=== PATIENT | male | born 1990 | race Caucasian/White ===

== ENCOUNTER 2019-05-29 15:49 | Emergency (ER) | payer SELFPAY ==
[2019-05-29 16:00] VITALS: BP 123/85
[2019-05-29] MEDS ORDERED: HYDROCODONE/ACETAMINOPHEN 5-325 MG TABLET PO ONE (16:31)
--- NOTE | 2019-05-29 16:34 | ER Document Report ---
ED Medical Screen (RME) - General Chief Complaint: Insect Bite Stated Complaint: ABSCESS/RIGHT WRIST Time Seen by Provider: 05/29/19 16:30 Mode of Arrival: Ambulatory Information source: Patient Notes: 29-year-old male presented to ED with a abscess to the right wrist. He states he was out in the [facility] on Thursday and something bit him he does not know what bit him but he has had pain and swelling to that wrist since then. He just got very painful today. He states he used to use drugs but does not use any drugs now and this is not from a dirty needle. He does have red streaking up the arm to the elbow from the wrist. Patient is alert oriented respirations regular nonlabored speaking in full sentences. I have greeted and performed a rapid initial assessment of this patient. A comprehensive ED assessment and evaluation of the patient, analysis of test results and completion of medical decision making process will be conducted by an additional ED providers. TRAVEL OUTSIDE OF THE [place] IN LAST 30 DAYS: No - Related Data Allergies/Adverse Reactions: No Known Allergies Allergy (Unverified 05/29/19 16:21) Physical Exam - Vital signs Vitals: Temp Pulse Resp BP Pulse Ox 97.7 F 102 H 22 H 123/85 100 05/29/19 15:59 05/29/19 15:59 05/29/19 15:59 05/29/19 15:59 05/29/19 15:59 Course - Vital Signs Vital signs: Temp Pulse Resp BP Pulse Ox 97.7 F 102 H 22 H 123/85 100 05/29/19 15:59 05/29/19 15:59 05/29/19 15:59 05/29/19 15:59 05/29/19 15:59
[2019-05-29] MEDS ORDERED: NORMAL SALINE 1000 ML 1,000 ML IV ONE (17:11)
[2019-05-29] MEDS ORDERED: CLINDAMYCIN 900 MG/D5W RTU 900 MG/50 ML RTUPB IV ONE (17:11)
[2019-05-29] MEDS ORDERED: LIDOCAINE 1.5%/EPINEPHRINE INJ-PF 30 ML SDV INJ ONE (17:12)
[2019-05-29] MEDS ORDERED: LIDOCAINE 1% INJ-PF (10 MG/ML) 30 ML SDV INJ ONE (17:12)
[2019-05-29] MEDS ORDERED: MORPHINE SULFATE 10 MG/ML INJ IV ONE (17:12)
[2019-05-29] MEDS ORDERED: ONDANSETRON HCL INJ/PF 4 MG/2 ML SDV IV ONE (17:12)
[2019-05-29 17:13] LABS: ABSOLUTE BASOPHILS # (AUTO) 0.2 10^3/uL (0.0-0.2); ABSOLUTE LYMPHOCYTES (AUTO) 2.3 10^3/uL (0.5-4.7); ABSOLUTE MONOCYTES (AUTO) 1.4 10^3/uL (0.1-1.4); BASOPHILS % (AUTO) 1.3 % (0-2); EOSINOPHILS % (AUTO) 0.3 % (0-6); HEMATOCRIT 44.9 % (37.9-51.0); HEMOGLOBIN 15.6 g/dL (13.5-17.0); LYMPHOCYTES % (AUTO) 12.1 % (13-45); MEAN CORPUSCULAR HEMOGLOBIN 31.4 pg (27.0-33.4); MEAN CORPUSCULAR HGB CONC 34.7 g/dL (32.0-36.0); MEAN CORPUSCULAR VOLUME 91 fl (80-97); MONOCYTES % (AUTO) 7.2 % (3-13); PLATELET COUNT 508 10^3/uL (150-450); RED BLOOD COUNT 4.96 10^6/uL (4.35-5.55); RED CELL DISTRIBUTION WIDTH 16.8 % (11.5-14.0); SEGMENTED NEUTROPHILS % (AUTO) 79.1 % (42-78); TOTAL CELLS COUNTED % (AUTO) 100 %
[2019-05-29 17:16] LABS: APPEARANCE,URINE CLEAR; BILIRUBIN,URINE NEGATIVE (NEGATIVE); COLOR,URINE YELLOW; GLUCOSE, URINE NEGATIVE (NEGATIVE); KETONES,URINE NEGATIVE (NEGATIVE); PROTEIN,URINE NEGATIVE (NEGATIVE); URINE SPECIFIC GRAVITY 1.014
--- NOTE | 2019-05-29 17:19 | ER Document Report ---
ED General - General Chief Complaint: Insect Bite Stated Complaint: ABSCESS/RIGHT WRIST Time Seen by Provider: 05/29/19 16:30 Mode of Arrival: Ambulatory Notes: Patient is a 29-year-old white male with no reported past medical history who presents to the emergency department the chief complaint of swollen red painful lesion to the right wrist that began on Thursday, 5 days ago. He states he was in the [facility] getting set up for when he was either "poked or bitten by something". He states at the time he did not think anything of it, it was not bad. He states it itched a little over the next couple days. He states by about day 3 began to be sore. He states yesterday he noticed it was red and swollen and very painful. He states he tried to wait it out last night and stated it was not better by noon today that he was going to call an ambulance. He states it indeed did not get better and so he came to the emergency department. He managed to a red swollen painful lump to the volar right wrist with some proximal red streaking. He denies any known fevers, nausea, vomiting, diarrhea, chills, night sweats, chest pain, shortness of breath or abdominal pain. TRAVEL OUTSIDE OF THE [place] IN LAST 30 DAYS: No - Related Data Allergies/Adverse Reactions: No Known Allergies Allergy (Unverified 05/29/19 16:21) Past Medical History - General Information source: Patient - Social History Smoking Status: Current Every Day Smoker Family History: Reviewed & Not Pertinent Patient has suicidal ideation: No Patient has homicidal ideation: No Review of Systems - Review of Systems Skin: Change in color, Lesions, Lumps, Rash -: Yes All other systems reviewed and negative Physical Exam - Vital signs Vitals: Temp Pulse Resp BP Pulse Ox 97.7 F 102 H 22 H 123/85 100 05/29/19 15:59 05/29/19 15:59 05/29/19 15:59 05/29/19 15:59 05/29/19 15:59 - General General appearance: Appears well, Alert In distress: None Notes: Nontoxic - HEENT Head: Normocephalic, Atraumatic Eyes: Normal Conjunctiva: Normal Extraocular movements intact: Yes Pupils: PERRL Mucous membranes: Moist Neck: Supple - Respiratory Respiratory status: No respiratory distress Chest status: Nontender Breath sounds: Normal Chest palpation: Normal - Cardiovascular Rhythm: Regular Heart sounds: Normal auscultation - Neurological Neuro grossly intact: Yes Cognition: Normal Orientation: AAOx4 [place] Coma Scale Eye Opening: Spontaneous [place] Coma Scale Verbal: Oriented Abby Coma Scale Motor: Obeys Commands Abby Coma Scale Total: 15 Speech: Normal - Psychological Associated symptoms: Anxious - Skin Skin Color: Other - Small dime sized abscess formation to the volar right wrist/distal forearm has approximately 0.5 cm elevation. No pointing. There is a questionable amount of fluctuance appreciated. There is some mild expanding cellulitis with proximal streaking to about the elbow. He has no epitrochlear lymphadenopathy but does exhibit some axillary lymphadenopathy, nontender. Site is exquisitely tender to palpation. No drainage. Full passive range of motion of the affected arm and hand. Course - Re-evaluation Re-evalutation: 05/29/19 18:31 Patient tolerated I&D well. Received IV clindamycin here as well as some pain medications and fluids. He does have an elevated white count of 19. He will be sent home to continue clindamycin for now. His vitals are within normal limits. He is afebrile and stable and appropriate for discharge and outpatient follow-u p. Nontoxic in appearance. Counseled him regarding the importance of follow-up in 2 to 3 days for wound recheck, reevaluation and packing removal. Advised to return here or any ER immediately with any new, persistent or worsening symptoms. He verbalized understood and agreed. - Vital Signs Vital signs: Temp Pulse Resp BP Pulse Ox 97.7 F 102 H 22 H 123/85 100 05/29/19 15:59 05/29/19 15:59 05/29/19 15:59 05/29/19 15:59 05/29/19 15:59 - Laboratory Result Diagrams: 05/29/19 16:40 05/29/19 16:40 Laboratory results interpreted by me: 05/29/19 05/29/19 05/29/19 16:40 16:40 16:40 WBC 19.0 H RDW 16.8 H Plt Count 508 H Lymph % (Auto) 12.1 L Absolute Neuts (auto) 15.0 H Seg Neutrophils % 79.1 H Total Protein 8.3 H Urine Urobilinogen 2.0 H Procedures - Incision and Drainage Right Wrist Time completed: 18:32 Type: Complex Anesthetic type: 1% Lidocaine mL's of anesthetic: 2 Blade size: 11 I&D procedure: Betadine prep applied, Iodoform packing placed Incision Method: Incision made by scalpel Amount/type of drainage: Moderate purulence Notes: 05/29/19 18:32 Tolerated well Discharge - Discharge Clinical Impression: Abscess, Lymphangitis Condition: Stable Disposition: HOME, SELF-CARE Instructions: Post Incision and Drainage Additional Instructions: Please follow-up here or with your regular doctor in 2 to 3 days for wound recheck, reevaluation and packing removal. Please return here or any ER immediately with any new, persistent or worsening symptoms. Prescriptions: Clindamycin HCl 300 mg PO Q6 #40 capsule Hydrocodone/Acetaminophen [[place] 5-325 mg Tablet] 1 tab PO Q6 PRN #10 tablet PRN Reason:
[2019-05-29 17:23] LABS: URINE AMPHETAMINES SCREEN NEGATIVE; URINE BARBITURATES SCREEN NEGATIVE; URINE BENZODIAZEPINES SCREEN NEGATIVE; URINE COCAINE SCREEN NEGATIVE; URINE METHADONE SCREEN NEGATIVE; URINE PHENCYCLIDINE SCREEN NEGATIVE
[2019-05-29 17:27] LABS: ALBUMIN 4.8 g/dL (3.5-5.0); ALKALINE PHOSPHATASE 81 U/L (38-126); ANION GAP 9 (5-19); ASPARTATE AMINO TRANSFERASE 22 U/L (17-59); BILIRUBIN,TOTAL 0.6 mg/dL (0.2-1.3); BLOOD UREA NITROGEN 14 mg/dL (7-20); CALCIUM 9.9 mg/dL (8.4-10.2); CARBON DIOXIDE 28 mmol/L (22-30); CHLORIDE 103 mmol/L (98-107); GLUCOSE 101 mg/dL (75-110); POTASSIUM 3.8 mmol/L (3.6-5.0); TOTAL PROTEIN 8.3 g/dL (6.3-8.2)
--- NOTE | 2019-05-29 17:27 | RADIOLOGY REPORT (SQ) ---
EXAM DESCRIPTION: WRIST RIGHT 3 VIEWS IMAGES COMPLETED DATE/TIME: 05/29/2019 4:00 pm REASON FOR STUDY: infection/abscess. In that by a at the radial at rest. COMPARISON: None. NUMBER OF VIEWS: Three views. TECHNIQUE: AP, lateral, and oblique radiographic images acquired of the right wrist. LIMITATIONS: None. FINDINGS: MINERALIZATION: Normal. BONES: No acute fracture or dislocation. No worrisome bone lesions. Normal alignment. SOFT TISSUES: There is soft tissue swelling at the radial aspect of the wrist. No radiopaque foreign body. OTHER: No other significant finding. IMPRESSION: No acute fracture or dislocation of the right wrist. Soft tissue swelling. No radiopaq ue foreign body. TECHNICAL DOCUMENTATION: JOB ID: [id number] 2010 [employer]- All Rights Reserved Reading location - IP/workstation name: [email or web address]
[2019-05-29 17:33] LABS: URINE MARIJUANA (THC) SCREEN UNCONFIRMED POSITIVE
[2019-05-29] MEDS ORDERED: HYDROCODONE/ACETAMINOPHEN 5-325 MG (6 TAB/ER DISP) PO PRN (19:24)
--- NOTE | 2019-05-30 15:48 | ER Document Report ---
Doctor's Note Notes: 05/30/19 15:47 [facility] called stating that the patient's prescription for [place] was sent to the wrong [facility] location. They will cancel the initial prescription, new prescription sent to [facility].
== END 2019-05-29 19:50 | disposition home or self-care (01) ==
LOC: ER 15:49
DX: L02.413 Cutaneous abscess of right upper limb (principal); I89.1 Lymphangitis; F17.200 Nicotine dependence, unspecified, uncomplicated
CPT/HCPCS: 99284; 96375; 96365; 96366; 36415; 87040; 85025; 80053; 81001; 80307; 73110; 10061; J3490 ×2; J2270; J2405; J7030